=== PATIENT | female | born 1955 | race Hispanic/Latino ===

== ENCOUNTER 2018-07-06 07:37 | Outpatient (CLI) | payer OTHER | END 2018-07-06 07:38 | disposition home or self-care (01) | LOC: PF 07:37 | PROVIDERS: ATTEND Internal Medicine | DX: R06.02 Shortness of breath (principal); S06.9X0A Unspecified intracranial injury without loss of consciousness, initial encounter; S19.9XXA Unspecified injury of neck, initial encounter; E03.9 Hypothyroidism, unspecified; Z91.040 Latex allergy status; Z88.1 Allergy status to other antibiotic agents; X58.XXXA Exposure to other specified factors, initial encounter; Y93.89 Activity, other specified; Y92.89 Other specified places as the place of occurrence of the external cause; Y99.8 Other external cause status | CPT/HCPCS: 94010; 94729 ==